=== PATIENT | male | born 1955 | race Caucasian/White ===

== ENCOUNTER → 2018-09-07 | Outpatient (CLI) | payer OTHER ==
[~2018-09-07] MED LIST: BISA10S; CEPH500 PO; FAMO20 PO; FURO20 PO; Humalog100 UNIT/3 INJ; INSUGL100V INJ; LAVAP17G; LEVFLO500 PO; MINE10T; ONDA4ODT MM; OXYC5 PO; PROM25 PO; SENN187 PO; SIME40L
== END | disposition home or self-care (01) ==
LOC: LAB 17:07 → LAB SHORT 17:07
DX: R21 Rash and other nonspecific skin eruption (principal); D48.5 Neoplasm of uncertain behavior of skin; L81.4 Other melanin hyperpigmentation; L82.1 Other seborrheic keratosis; D18.01 Hemangioma of skin and subcutaneous tissue
CPT/HCPCS: 87102

== ENCOUNTER → 2018-12-20 | Outpatient (CLI) | payer OTHER | END | disposition home or self-care (01) | LOC: LAB 17:14 → LAB SHORT 17:14 | DX: L08.9 Local infection of the skin and subcutaneous tissue, unspecified (principal) | CPT/HCPCS: 87070; 87077; 87147; 87186; 87205 ==

== ENCOUNTER 2019-01-04 09:42 | Emergency (ER) | payer OTHER ==
[~2019-01-04] VITALS: Ht 188 cm; Wt 90.7 kg
[2019-01-04 10:20] LABS: BASOPHILS ABSOLUTE AUTO 0.04 K/mm3 (0.00-0.23); BASOPHILS PERCENT AUTO 1 % (0-2); EOSINOPHILS ABSOLUTE AUTO 0.04 K/mm3 (0.00-0.68); EOSINOPHILS PERCENT AUTO 1 % (0-6); Hematocrit 43.1 % (37.0-53.0); Hemoglobin 14.3 g/dL (13.5-17.5); IMMATURE GRAN ABSOLUTE AUTO 0.02 K/mm3 (0.00-0.10); IMMATURE GRAN PERCENT AUTO 0 % (0-1); LYMPHOCYTES ABSOLUTE AUTO 0.69 K/mm3 (0.84-5.20); LYMPHOCYTES PERCENT AUTO 13 % (21-46); MONOCYTES ABSOLUTE AUTO 0.56 K/mm3 (0.16-1.47); MONOCYTES PERCENT AUTO 10 % (4-13); Mean Corpuscular HGB 28.7 pg (26.0-34.0); Mean Corpuscular HGB Conc 33.2 g/dL (31.5-36.5); Mean Corpuscular Volume 87 fL (80-100); Mean Platelet Volume 12.5 fL (9.1-12.4); NEUTROPHILS ABSOLUTE AUTO 4.16 K/mm3 (1.96-9.15); NEUTROPHILS PERCENT AUTO 76 % (41-73); Platelet Count 85 K/mm3 (150-400); RDW Coefficient Variation 13.5 % (11.7-14.2); Red Blood Cell Count 4.98 M/mm3 (4.30-5.90); White Blood Cell Count 5.51 K/mm3 (4.00-11.30)
[2019-01-04 10:31] LABS: Alanine Aminotransfer (ALT/SGP 39 U/L (12-78); Albumin, Blood 3.8 g/dL (3.4-5.0); Albumin/Globulin Ratio 1.2 (0.8-1.8); Alk Phos 107 U/L (50-136); Anion Gap 7 mmol/L (6-16); Aspartate Aminotrans (AST/SGOT 31 U/L (12-37); Bilirubin, Total 0.7 mg/dL (0.1-1.0); Blood Urea Nitrogen 14 mg/dL (8-24); Bun/Creatinine Ratio 11.9 (12.0-20.0); CO2, Blood 28 mmol/L (21-32); Calcium, Blood 8.5 mg/dL (8.5-10.1); Chloride, Blood 108 mmol/L (98-108); Creatinine, Blood 1.18 mg/dL (0.60-1.20); Globulin, Blood 3.1 g/dL (2.2-4.0); Glomerular Filtration Rate >60 (60-); Glucose, Blood 54 mg/dL (70-99); Potassium, Blood 3.3 mmol/L (3.5-5.5); Sodium, Blood 143 mmol/L (136-145); Total Protein, Blood 6.9 g/dL (6.4-8.2)
[2019-01-04 11:50] LABS: Source, Urine Clean Catch
[2019-01-04 11:56] LABS: Bilirubin, Urine Neg (Neg); Blood, Urine Neg (Neg); Glucose Qualitative, Urine 2+ (Neg); Ketones, Urine Neg (Neg); Leukocyte Esterase, Urine Neg (Neg); Nitrite, Urine Neg (Neg); Protein, Urine 1+ (Neg); Specific Gravity, Urine 1.025 (1.003-1.022); Urobilinogen, Urine NORM (Normal)
[2019-01-04 12:02] LABS: Appearance, Urine Clear (Clear); Color, Urine Yellow (P-Yellow)
== END 2019-01-04 13:00 | disposition home or self-care (01) ==
LOC: ER 09:42
PROVIDERS: Emergency Medicine
DX: R42 Dizziness and giddiness (principal); Z79.899 Other long term (current) drug therapy; Z79.4 Long term (current) use of insulin
CPT/HCPCS: 36415; 80053; 83690; 84484; 85025; 93005; 93010; 96360; 99284-25; J7030

== ENCOUNTER → 2019-01-24 | Outpatient (CLI) | payer OTHER | END | disposition home or self-care (01) | LOC: LAB 16:43 → LAB SHORT 16:43 | DX: L08.9 Local infection of the skin and subcutaneous tissue, unspecified (principal); L28.0 Lichen simplex chronicus; L97.519 Non-pressure chronic ulcer of other part of right foot with unspecified severity; R60.0 Localized edema | CPT/HCPCS: 87070; 87077; 87147; 87186; 87205 ==

== ENCOUNTER 2019-08-18 06:40 | Inpatient (IN) | payer OTHER ==
[~2019-08-18] VITALS: Ht 188 cm; Wt 97.4 kg
[2019-08-18 07:22] LABS: BASOPHILS ABSOLUTE AUTO 0.02 K/mm3 (0.00-0.23); BASOPHILS PERCENT AUTO 0 % (0-2); EOSINOPHILS PERCENT AUTO 0 % (0-6); Hematocrit 45.8 % (37.0-53.0); Hemoglobin 15.3 g/dL (13.5-17.5); IMMATURE GRAN ABSOLUTE AUTO 0.01 K/mm3 (0.00-0.10); IMMATURE GRAN PERCENT AUTO 0 % (0-1); LYMPHOCYTES ABSOLUTE AUTO 0.13 K/mm3 (0.84-5.20); LYMPHOCYTES PERCENT AUTO 2 % (21-46); MONOCYTES ABSOLUTE AUTO 0.39 K/mm3 (0.16-1.47); MONOCYTES PERCENT AUTO 6 % (4-13); Mean Corpuscular HGB 28.8 pg (26.0-34.0); Mean Corpuscular HGB Conc 33.4 g/dL (31.5-36.5); Mean Corpuscular Volume 86 fL (80-100); Mean Platelet Volume 11.9 fL (9.1-12.4); NEUTROPHILS ABSOLUTE AUTO 5.71 K/mm3 (1.96-9.15); NEUTROPHILS PERCENT AUTO 91 % (41-73); Platelet Count 86 K/mm3 (150-400); RDW Coefficient Variation 13.6 % (11.7-14.2); RDW Standard Deviation 42.4 fL (35.1-46.3); Red Blood Cell Count 5.32 M/mm3 (4.30-5.90); White Blood Cell Count 6.26 K/mm3 (4.00-11.30)
[2019-08-18 07:39] LABS: Albumin, Blood 3.6 g/dL (3.4-5.0); Albumin/Globulin Ratio 1.1 (0.8-1.8); Bilirubin, Total 1.1 mg/dL (0.1-1.0); Bun/Creatinine Ratio 16.5 (12.0-20.0); Calcium, Blood 8.4 mg/dL (8.5-10.1); Creatinine, Blood 1.39 mg/dL (0.60-1.20); Globulin, Blood 3.2 g/dL (2.2-4.0); Potassium, Blood 4.2 mmol/L (3.5-5.5); Total Protein, Blood 6.8 g/dL (6.4-8.2)
--- NOTE | 2019-08-18 16:01 | NUR ---
ASSUMED CARE OF PATIENT AT THIS TIME. PT IS SLEEPING. CALL LIGHT IN REACH. VSS. WILL CONT TO MONITOR.
--- NOTE | 2019-08-18 19:28 | NUR ---
PT HAS BEEN STABLE. NO FLATUS OR STOOL. NEEDS GI PANEL COLLECTED. CONT BOWEL REST AND IV FLUIDS. PT PAIN CONTROLLED WITH PRN FENT. VOIDING WITH URINAL. ENCOURAGING AMB TOLERATED. DNR BRACELET PLACED AFTER ORDER VERIFIED WITH 2ND RN. PT CAN USE CALL LIGHT APPROPRIATELY.
[2019-08-19 00:51] LABS: Campylobacter Sp Not Detected (NOT DETECT)
[2019-08-19 00:52] LABS: Adenovirus F 40/41 Not Detected (NOT DETECT); Astrovirus Not Detected (NOT DETECT); Cryptosporidium Not Detected (NOT DETECT); Cyclospora Cayetanensis Not Detected (NOT DETECT); E. Coli O157 Not Detected (NOT DETECT); Entamoeba Histolytica Not Detected (NOT DETECT); Enteroaggregative E. coli-EAEC Not Detected (NOT DETECT); Enteropathogenic E. coli-EPEC Not Detected (NOT DETECT); Enterotoxigenic E. coli-ETEC Not Detected (NOT DETECT); Giardia Lamblia Not Detected (NOT DETECT); Norovirus GI/GII Detected (NOT DETECT); Plesiomonas Shigelloides Not Detected (NOT DETECT); Rotavirus A Not Detected (NOT DETECT); Salmonella Sp Not Detected (NOT DETECT); Sapovirus Not Detected (NOT DETECT); Shiga Toxin-prod E. coli-STEC Not Detected (NOT DETECT); Shigella/Enteroin E. coli-EIEC Not Detected (NOT DETECT); Vibrio Cholerae Not Detected (NOT DETECT); Vibrio Sp Not Detected (NOT DETECT); Yersinia Enterocolitica Not Detected (NOT DETECT)
[2019-08-19 04:51] LABS: Hematocrit 46.7 % (37.0-53.0); Hemoglobin 15.1 g/dL (13.5-17.5); Mean Corpuscular HGB 28.4 pg (26.0-34.0); Mean Corpuscular HGB Conc 32.3 g/dL (31.5-36.5); Mean Corpuscular Volume 88 fL (80-100); Mean Platelet Volume 12.2 fL (9.1-12.4); Platelet Count 85 K/mm3 (150-400); RDW Coefficient Variation 13.6 % (11.7-14.2); Red Blood Cell Count 5.32 M/mm3 (4.30-5.90); White Blood Cell Count 4.41 K/mm3 (4.00-11.30)
[2019-08-19 05:18] LABS: Alanine Aminotransfer (ALT/SGP 24 U/L (12-78); Albumin, Blood 3.1 g/dL (3.4-5.0); Alk Phos 83 U/L (50-136); Anion Gap 8 mmol/L (6-16); Aspartate Aminotrans (AST/SGOT 23 U/L (12-37); Bilirubin, Total 0.6 mg/dL (0.1-1.0); Blood Urea Nitrogen 30 mg/dL (8-24); Bun/Creatinine Ratio 22.9 (12.0-20.0); CO2, Blood 22 mmol/L (21-32); Calcium, Blood 7.8 mg/dL (8.5-10.1); Chloride, Blood 111 mmol/L (98-108); Creatinine, Blood 1.31 mg/dL (0.60-1.20); Globulin, Blood 3.1 g/dL (2.2-4.0); Glomerular Filtration Rate 58 (60-); Glucose, Blood 82 mg/dL (70-99); Potassium, Blood 3.8 mmol/L (3.5-5.5); Sodium, Blood 141 mmol/L (136-145); Total Protein, Blood 6.2 g/dL (6.4-8.2)
--- NOTE | 2019-08-19 05:46 | NUR ---
SHIFT SUMMARY PT RESTING WELL THIS AM. AAOX4. NPO. DISCOMFORT CONTROLLED WITH 50mcg FENTANYL X1 THIS SHIFT. DENIES NAUSEA/EMESIS. HYPOGLYCEMIA NOTED AT MIDNIGHT, DR BANKS NOTIFIED + NEW ORDERS OBTAINED TO CHANGE IVF TO D5NS AT 75ml/hr + TO HOLD AM DOSE OF LANTUS AT THIS TIME. PT INDEPENDENT IN ROOM + UP TO RESTROOM FOR MULTIPLE LOOSE BMs THIS SHIFT. STOOL SAMPLE SENT. KIRAN MCELROY TO BRIAN. PT RESTING AT THIS TIME, LISHA, WITH CALL LIGHT IN REACH.
--- NOTE | 2019-08-19 17:38 | NUR ---
SHIFT SUMMARY PT HAS DONE WELL THIS SHIFT. HAS HAD NO PAIN, N/V. HAS DENIED ANY LIQUID STOOLS THIS SHIFT, POSITIVE FOR NOROVIRUS. PT INDEPENDENT IN ROOM.
[2019-08-20 05:56] LABS: BASOPHILS ABSOLUTE AUTO 0.02 K/mm3 (0.00-0.23); BASOPHILS PERCENT AUTO 1 % (0-2); EOSINOPHILS ABSOLUTE AUTO 0.13 K/mm3 (0.00-0.68); EOSINOPHILS PERCENT AUTO 4 % (0-6); Hematocrit 42.6 % (37.0-53.0); Hemoglobin 14.1 g/dL (13.5-17.5); IMMATURE GRAN ABSOLUTE AUTO 0.01 K/mm3 (0.00-0.10); IMMATURE GRAN PERCENT AUTO 0 % (0-1); LYMPHOCYTES ABSOLUTE AUTO 0.35 K/mm3 (0.84-5.20); LYMPHOCYTES PERCENT AUTO 12 % (21-46); MONOCYTES PERCENT AUTO 17 % (4-13); Mean Corpuscular HGB 28.8 pg (26.0-34.0); Mean Corpuscular HGB Conc 33.1 g/dL (31.5-36.5); Mean Corpuscular Volume 87 fL (80-100); Mean Platelet Volume 12.3 fL (9.1-12.4); NEUTROPHILS ABSOLUTE AUTO 1.98 K/mm3 (1.96-9.15); NEUTROPHILS PERCENT AUTO 66 % (41-73); Platelet Count 59 K/mm3 (150-400); RDW Coefficient Variation 13.6 % (11.7-14.2); RDW Standard Deviation 43.4 fL (35.1-46.3); White Blood Cell Count 2.99 K/mm3 (4.00-11.30)
[2019-08-20 06:11] LABS: Albumin, Blood 2.8 g/dL (3.4-5.0); Anion Gap 6 mmol/L (6-16); Blood Urea Nitrogen 24 mg/dL (8-24); Bun/Creatinine Ratio 22.6 (12.0-20.0); CO2, Blood 23 mmol/L (21-32); Calcium, Blood 7.8 mg/dL (8.5-10.1); Chloride, Blood 113 mmol/L (98-108); Creatinine, Blood 1.06 mg/dL (0.60-1.20); Glomerular Filtration Rate >60 (60-); Glucose, Blood 159 mg/dL (70-99); Phosphorus, Blood 2.1 mg/dL (2.5-4.9); Potassium, Blood 4.2 mmol/L (3.5-5.5); Sodium, Blood 142 mmol/L (136-145)
--- NOTE | 2019-08-20 07:23 | NUR ---
SHIFT SUMMARY PT RESTED WELL T/O NIGHT. AAOX4. DENIES DISCOMFORT/NAUSEA T/O NIGHT. BOWEL TONES HYPERACTIVE X4 QUADS, ABD SEVERELY FIRM/DISTENDED, PT REPORTING ABD AT BASELINE FROM PREVIOUS SURGERY IN 2013. PT UP IN ROOM INDEPENDENTLY WITH X2 LARGE SOFT BMs. IVF PER ORDERS. TOLERATING CLEAR LIQUID DIET WELL, PT REQUESTING TO BE ADVANCED TO ADA DIET. NO ACUTE CHANGES OVER NIGHT. PT SITTING UP IN BED AT THIS TIME WATCHING TV WITH CALL LIGHT IN REACH. REPORT TO DAY SHIFT RN.
[2019-08-20] MEDS ORDERED: K-Phos Origina500 MG PO (11:21)
--- NOTE | 2019-08-20 12:04 | NUR ---
DISCHARGE: PACKET PRINTED AND PT EDUCATED. MEDS FAXED TO [facility]. PT LEFT UNIT BY FOOT AT ABOUT 1140
== END 2019-08-20 11:40 | disposition home or self-care (01) | DRG 392 ==
LOC: ER 06:40 → SURS 10:33
PROVIDERS: Emergency Medicine; Internal Medicine; Nurse Practitioner Acute Care; ADMIT Family Medicine
DX: A08.11 Acute gastroenteropathy due to Norwalk agent (principal); N17.9 Acute kidney failure, unspecified; K76.6 Portal hypertension; E86.0 Dehydration; D69.6 Thrombocytopenia, unspecified; K31.89 Other diseases of stomach and duodenum; E11.9 Type 2 diabetes mellitus without complications; K21.9 Gastro-esophageal reflux disease without esophagitis; E83.39 Other disorders of phosphorus metabolism; Z79.4 Long term (current) use of insulin
CPT/HCPCS: 0097U; 36415; 74177; 80053; 80069; 82947; 83036; 83690; 83735; 84153; 85025; 85027; 90686; 96361; 96374-59; 96375; 96376; 99285-25; C9113; G0008; J2270; J2405; J3010; J7030; Q9967

== ENCOUNTER → 2020-11-11 | Outpatient (CLI) | payer OTHER | LOC: LAB SHORT 17:46 → LAB 17:46 | DX: L08.9 Local infection of the skin and subcutaneous tissue, unspecified (principal) | CPT/HCPCS: 87070; 87077; 87147; 87186; 87205 ==

== ENCOUNTER 2024-04-02 18:04 | Emergency (ER) | payer OTHER ==
[~2024-04-02] VITALS: Ht 188 cm; Wt 90.7 kg
[~2024-04-02 18:04] MED LIST changes: +AMLO10 PO; +Acetaminophen650 M1 PO; +INSULANPEN SC; +K-Phos Origina500 MG PO; +LEVO750 PO; +SEMGLEE (Y100 UNIT/2 SC; +TAMS.4ER PO; +VISBIOME 112.51 EACH PO
[2024-04-02] MEDS ORDERED: CefTRIAXone Sodium 2,000 MG in NS 100 ML IV ONE (19:55)
[2024-04-02 20:27] LABS: Source, Urine Foley catheter
[2024-04-02 20:31] LABS: BASOPHILS ABSOLUTE AUTO 0.03 K/mm3 (0.00-0.23); BASOPHILS PERCENT AUTO 0 % (0-2); EOSINOPHILS ABSOLUTE AUTO 0.11 K/mm3 (0.00-0.68); EOSINOPHILS PERCENT AUTO 1 % (0-6); Hematocrit 39.9 % (37.0-53.0); Hemoglobin 13.5 g/dL (13.5-17.5); IMMATURE GRAN ABSOLUTE AUTO 0.04 K/mm3 (0.00-0.10); IMMATURE GRAN PERCENT AUTO 1 % (0-1); LYMPHOCYTES ABSOLUTE AUTO 0.22 K/mm3 (0.84-5.20); LYMPHOCYTES PERCENT AUTO 3 % (21-46); MONOCYTES ABSOLUTE AUTO 0.64 K/mm3 (0.16-1.47); MONOCYTES PERCENT AUTO 8 % (4-13); Mean Corpuscular HGB Conc 33.8 g/dL (31.5-36.5); Mean Corpuscular Volume 86 fL (80-100); Mean Platelet Volume 11.5 fL (9.1-12.4); NEUTROPHILS PERCENT AUTO 88 % (41-73); Platelet Count 109 K/mm3 (150-400); RDW Coefficient Variation 13.3 % (11.7-14.2); RDW Standard Deviation 41.8 fL (35.1-46.3); Red Blood Cell Count 4.65 M/mm3 (4.30-5.90); White Blood Cell Count 8.44 K/mm3 (4.00-11.30)
[2024-04-02 20:32] LABS: Bilirubin, Urine Neg (Neg); Blood, Urine 5+ (Neg); Glucose Qualitative, Urine 2+ (Neg); Ketones, Urine 1+ (Neg); Leukocyte Esterase, Urine 3+ (Neg); Nitrite, Urine Pos (Neg); Protein, Urine 4+ (Neg); Urobilinogen, Urine NORM (Normal)
[2024-04-02 20:34] LABS: Appearance, Urine Turbid (Clear); Color, Urine Red (P-Yellow)
[2024-04-02 20:39] LABS: Bacteria Many /hpf; Red Blood Cells, Urine 50-100 /hpf (0-2); Squamous Epithelial Cells Rare /hpf (Few); White Blood Cells, Urine TNTC /hpf (0-5)
[2024-04-02 20:51] LABS: Magnesium, Blood 2.2 mg/dL (1.6-2.4)
[2024-04-02 20:52] LABS: Albumin, Blood 3.6 g/dL (3.4-5.0); Bilirubin, Total 0.8 mg/dL (0.1-1.0); Creatinine, Blood 1.59 mg/dL (0.60-1.20); Globulin, Blood 3.5 g/dL (2.2-4.0); Potassium, Blood 4.4 mmol/L (3.5-5.5); Total Protein, Blood 7.1 g/dL (6.4-8.2)
[2024-04-02] MEDS ORDERED: CEFD300 PO (21:14)
[2024-04-02 21:30] VITALS: BP 162/92
== END 2024-04-02 21:53 | disposition home or self-care (01) ==
LOC: ER 18:04
PROVIDERS: Physician Assistant
DX: N39.0 Urinary tract infection, site not specified (principal); N18.9 Chronic kidney disease, unspecified; E10.65 Type 1 diabetes mellitus with hyperglycemia; E10.22 Type 1 diabetes mellitus with diabetic chronic kidney disease; N40.1 Benign prostatic hyperplasia with lower urinary tract symptoms; R33.8 Other retention of urine; Z79.4 Long term (current) use of insulin; Z79.899 Other long term (current) drug therapy
CPT/HCPCS: 51702; 80053; 81001; 83735; 85025; 87077; 87086; 87147; 87186; 96374; 99284-25; J0696

== ENCOUNTER 2024-05-13 17:40 | Emergency (ER) | payer OTHER ==
[~2024-05-13] VITALS: Ht 188 cm; Wt 90.7 kg
[~2024-05-13 17:40] MED LIST changes: +CEFD300 PO
[2024-05-13 17:45] VITALS: BP 170/9
[2024-05-13 18:18] LABS: Source, Urine Foley catheter
[2024-05-13 18:20] LABS: Appearance, Urine Cloudy (Clear); Bilirubin, Urine Neg (Neg); Blood, Urine 5+ (Neg); Color, Urine Yellow (P-Yellow); Glucose Qualitative, Urine 4+ (Neg); Ketones, Urine Neg (Neg); Leukocyte Esterase, Urine 3+ (Neg); Nitrite, Urine Pos (Neg); Protein, Urine 3+ (Neg); Specific Gravity, Urine 1.025 (1.003-1.022); Urobilinogen, Urine NORM (Normal)
[2024-05-13 18:36] LABS: Bacteria Many /hpf; Red Blood Cells, Urine 25-50 /hpf (0-2); Squamous Epithelial Cells Not Seen /hpf (Few); White Blood Cells, Urine 50-100 /hpf (0-5)
== END 2024-05-13 19:00 | disposition home or self-care (01) ==
LOC: ER 17:40
PROVIDERS: Physician Assistant
DX: T83.091A Other mechanical complication of indwelling urethral catheter, initial encounter (principal); N40.1 Benign prostatic hyperplasia with lower urinary tract symptoms; R33.8 Other retention of urine; E10.9 Type 1 diabetes mellitus without complications; Z79.4 Long term (current) use of insulin; Z79.2 Long term (current) use of antibiotics; Z79.899 Other long term (current) drug therapy
CPT/HCPCS: 51702; 81001; 87086; 99283-25

== ENCOUNTER 2024-07-19 17:27 | Emergency (ER) | payer OTHER ==
[~2024-07-19] VITALS: Ht 188 cm; Wt 90.7 kg
[~2024-07-19 17:27] MED LIST changes: +CEFP200 PO
[2024-07-19 18:51] VITALS: BP 153/86
[2024-07-19 18:52] LABS: Source, Urine Foley catheter
[2024-07-19 19:02] LABS: Appearance, Urine Cloudy (Clear); Bilirubin, Urine Neg (Neg); Blood, Urine 5+ (Neg); Color, Urine Amber (P-Yellow); Glucose Qualitative, Urine Neg (Neg); Ketones, Urine Neg (Neg); Leukocyte Esterase, Urine 3+ (Neg); Nitrite, Urine Pos (Neg); Protein, Urine 4+ (Neg); Urobilinogen, Urine NORM (Normal); pH, Urine 6.5 (5.0-8.0)
[2024-07-19 19:09] LABS: White Blood Cells, Urine TNTC /hpf (0-5)
[2024-07-19 19:11] LABS: Bacteria Many /hpf; Red Blood Cells, Urine 50-100 /hpf (0-2); Squamous Epithelial Cells Not Seen /hpf (Few)
[2024-07-19] MEDS ORDERED: Trimethoprim/Sulfamethoxazole DS Tab PO ONE (19:20)
[2024-07-19] MEDS ORDERED: SULTRIDS PO (19:23)
== END 2024-07-19 19:50 | disposition home or self-care (01) ==
LOC: ER 17:27
PROVIDERS: Student in an Organized Health Care Education/Training Program
DX: T83.098A Other mechanical complication of other urinary catheter, initial encounter (principal); N39.0 Urinary tract infection, site not specified; E11.9 Type 2 diabetes mellitus without complications; Z79.4 Long term (current) use of insulin; Z79.899 Other long term (current) drug therapy
CPT/HCPCS: 51702; 51798; 81001; 87077; 87086; 87186; 99283-25; A9270

== ENCOUNTER 2024-07-28 02:54 | Emergency (ER) | payer OTHER ==
[~2024-07-28] VITALS: Ht 188 cm; Wt 90.7 kg
[~2024-07-28 02:54] MED LIST changes: +SULTRIDS PO
[2024-07-28 03:08] VITALS: BP 189/99
[2024-07-28] MEDS ORDERED: SULFAMETHOXAZO1 EAC1 PO (03:10)
[2024-07-28] MEDS ORDERED: CEFU250T47 PO (03:10)
[2024-07-28] MEDS ORDERED: SEMGLEE (Y100 UNIT/2 (03:11)
[2024-07-28] MEDS ORDERED: Lidocaine 2% Jelly Uro-Jet TOP ONE (03:45)
== END 2024-07-28 04:07 | disposition home or self-care (01) ==
LOC: ER 02:54
DX: T83.098A Other mechanical complication of other urinary catheter, initial encounter (principal); Y84.6 Urinary catheterization as the cause of abnormal reaction of the patient, or of later complication, without mention of misadventure at the time of the procedure
CPT/HCPCS: 51798; 99283

== ENCOUNTER 2024-07-29 14:06 | Emergency (ER) | payer OTHER ==
[~2024-07-29] VITALS: Ht 188 cm; Wt 90.7 kg
[~2024-07-29 14:06] MED LIST changes: +CEFU250T47 PO; +SEMGLEE (Y100 UNIT/2; +SULFAMETHOXAZO1 EAC1 PO
[2024-07-29 14:27] VITALS: BP 175/89
== END 2024-07-29 15:07 | disposition home or self-care (01) ==
LOC: ER 14:06
DX: T83.091A Other mechanical complication of indwelling urethral catheter, initial encounter (principal); R33.9 Retention of urine, unspecified; E10.9 Type 1 diabetes mellitus without complications; Z79.4 Long term (current) use of insulin
CPT/HCPCS: 51702; 99283

== ENCOUNTER 2024-08-24 12:31 | Emergency (ER) | payer OTHER ==
[~2024-08-24] VITALS: Ht 188 cm; Wt 81.7 kg
[2024-08-24 12:52] VITALS: BP 191/110
[2024-08-24 13:26] LABS: Source, Urine Foley catheter
[2024-08-24 13:31] LABS: Appearance, Urine Cloudy (Clear); Bilirubin, Urine Neg (Neg); Blood, Urine 5+ (Neg); Color, Urine Yellow (P-Yellow); Glucose Qualitative, Urine 4+ (Neg); Ketones, Urine Neg (Neg); Leukocyte Esterase, Urine 3+ (Neg); Nitrite, Urine Pos (Neg); Protein, Urine 3+ (Neg); Specific Gravity, Urine 1.015 (1.003-1.022); Urobilinogen, Urine NORM (Normal); pH, Urine 6.5 (5.0-8.0)
[2024-08-24 13:43] LABS: Bacteria Mod /hpf; Red Blood Cells, Urine 25-50 /hpf (0-2); Squamous Epithelial Cells Not Seen /hpf (Few); White Blood Cells, Urine 50-100 /hpf (0-5)
[2024-08-24] MEDS ORDERED: CEPH500 PO (15:05)
[2024-08-24] MEDS ORDERED: SULTRIDS PO (15:05)
== END 2024-08-24 15:05 | disposition home or self-care (01) ==
LOC: ER 12:31
PROVIDERS: Student in an Organized Health Care Education/Training Program
DX: T83.091A Other mechanical complication of indwelling urethral catheter, initial encounter (principal); N39.0 Urinary tract infection, site not specified; Z79.899 Other long term (current) drug therapy
CPT/HCPCS: 51702; 81001; 87077; 87086; 87186; 99283-25

== ENCOUNTER 2024-12-30 12:13 | Emergency (ER) | payer OTHER ==
[~2024-12-30] VITALS: Ht 188 cm; Wt 95.2 kg
[2024-12-30 12:30] VITALS: BP 145/95
[2024-12-30 14:22] LABS: Source, Urine Foley catheter
[2024-12-30 14:27] LABS: Appearance, Urine Cloudy (Clear); Bilirubin, Urine Neg (Neg); Blood, Urine 5+ (Neg); Color, Urine Yellow (P-Yellow); Glucose Qualitative, Urine 4+ (Neg); Ketones, Urine Neg (Neg); Leukocyte Esterase, Urine 3+ (Neg); Nitrite, Urine Pos (Neg); Protein, Urine 3+ (Neg); Specific Gravity, Urine 1.015 (1.003-1.022); Urobilinogen, Urine NORM (Normal)
[2024-12-30 14:34] LABS: White Blood Cells, Urine TNTC /hpf (0-5)
[2024-12-30 14:35] LABS: Bacteria Many /hpf; Squamous Epithelial Cells Few /hpf (Few); Triple Phosphate Crystals Rare /hpf
[2024-12-30] MEDS ORDERED: Ciprofloxacin 500 MG Tab PO ONE (15:25)
[2024-12-30] MEDS ORDERED: CIPR250 PO (15:27)
== END 2024-12-30 18:07 | disposition home or self-care (01) ==
LOC: ER 12:13
PROVIDERS: Emergency Medicine
DX: T83.091A Other mechanical complication of indwelling urethral catheter, initial encounter (principal); N39.0 Urinary tract infection, site not specified; Z88.2 Allergy status to sulfonamides; Z88.1 Allergy status to other antibiotic agents; E11.9 Type 2 diabetes mellitus without complications
CPT/HCPCS: 51702; 51798; 81001; 87077; 87086; 87186; 99283-25; A9270

== ENCOUNTER 2025-02-10 11:47 | Emergency (ER) | payer OTHER ==
[~2025-02-10] VITALS: Ht 188 cm; Wt 90.7 kg
[~2025-02-10 11:47] MED LIST changes: +CIPR250 PO
[2025-02-10 11:51] VITALS: BP 174/70
[2025-02-10] MEDS ORDERED: Lidocaine 2% Jelly Uro-Jet UR ONE (11:55)
== END 2025-02-10 13:33 | disposition home or self-care (01) ==
LOC: ER 11:47
DX: T83.091A Other mechanical complication of indwelling urethral catheter, initial encounter (principal); E11.9 Type 2 diabetes mellitus without complications; Z79.4 Long term (current) use of insulin; Z79.899 Other long term (current) drug therapy; Z79.2 Long term (current) use of antibiotics
CPT/HCPCS: 99282

== ENCOUNTER 2025-03-14 12:01 | Emergency (ER) | payer OTHER ==
[~2025-03-14] VITALS: Ht 188 cm; Wt 90.7 kg
[2025-03-14 12:29] VITALS: BP 199/97
[2025-03-14 13:25] LABS: Source, Urine Clean Catch
[2025-03-14 13:29] LABS: Bilirubin, Urine Neg (Neg); Color, Urine Brown (P-Yellow); Glucose Qualitative, Urine 3+ (Neg); Ketones, Urine Neg (Neg); Leukocyte Esterase, Urine 3+ (Neg); Protein, Urine 4+ (Neg); Specific Gravity, Urine 1.015 (1.003-1.022); Urobilinogen, Urine NORM (Normal)
[2025-03-14 13:46] LABS: Red Blood Cells, Urine TNTC /hpf (0-2); White Blood Cells, Urine TNTC /hpf (0-5)
[2025-03-14] MEDS ORDERED: Bactrim Ds Tab1 EACH PO (13:57)
== END 2025-03-14 14:45 | disposition home or self-care (01) ==
LOC: ER 12:01
PROVIDERS: Physician Assistant
DX: T83.098A Other mechanical complication of other urinary catheter, initial encounter (principal); N39.0 Urinary tract infection, site not specified; E10.9 Type 1 diabetes mellitus without complications; Z79.4 Long term (current) use of insulin
CPT/HCPCS: 51702; 81001; 87077; 87086; 87147; 87186; 99283-25

== ENCOUNTER 2025-05-13 08:50 | Day surgery (SDC) | payer OTHER ==
[~2025-05-13] VITALS: Ht 185.4 cm; Wt 95.3 kg
[~2025-05-13 08:50] MED LIST changes: +Bactrim Ds Tab1 EACH PO; +NITR.4SL SL
[2025-05-13] MEDS ORDERED: Verapamil HCL 2.5 MG/ML 2ML Injection ONE ×3 (09:26→12:33)
[2025-05-13] MEDS ORDERED: NS 1,000 ML IV ONE ×2 (09:27→09:38)
[2025-05-13] MEDS ORDERED: NS 500 ML IV ONE ×2 (09:27→10:53)
[2025-05-13] MEDS ORDERED: Heparin Sodium 1000 Units/ML 10ML MDV ONE ×3 (09:27→10:53)
[2025-05-13] MEDS ORDERED: NS 250 ML IV ONE (09:27)
[2025-05-13] MEDS ORDERED: Nitroglycerin 2 MG/20 ML BTL ONE (09:27)
[2025-05-13 09:47] LABS: BASOPHILS ABSOLUTE AUTO 0.04 K/mm3 (0.00-0.23); BASOPHILS PERCENT AUTO 1 % (0-2); EOSINOPHILS ABSOLUTE AUTO 0.23 K/mm3 (0.00-0.68); EOSINOPHILS PERCENT AUTO 4 % (0-6); Hematocrit 41.3 % (37.0-53.0); Hemoglobin 14.4 g/dL (13.5-17.5); IMMATURE GRAN ABSOLUTE AUTO 0.01 K/mm3 (0.00-0.10); IMMATURE GRAN PERCENT AUTO 0 % (0-1); LYMPHOCYTES ABSOLUTE AUTO 0.40 K/mm3 (0.84-5.20); LYMPHOCYTES PERCENT AUTO 7 % (21-46); MONOCYTES ABSOLUTE AUTO 0.55 K/mm3 (0.16-1.47); MONOCYTES PERCENT AUTO 9 % (4-13); Mean Corpuscular HGB Conc 34.9 g/dL (31.5-36.5); Mean Corpuscular Volume 85 fL (80-100); NEUTROPHILS ABSOLUTE AUTO 4.77 K/mm3 (1.96-9.15); NEUTROPHILS PERCENT AUTO 79 % (41-73); NRBC ABSOLUTE 0.00 K/mm3 (0.00-0.02); NRBC Auto 0.0 /100 WBC (0.0-0.2); Platelet Count 102 K/mm3 (150-400); RDW Coefficient Variation 13.5 % (11.7-14.2); RDW Standard Deviation 41.8 fL (35.1-46.3)
[2025-05-13] MEDS ORDERED: NS 100 ML IV ONE ×2 (09:56→11:18)
[2025-05-13 10:00] LABS: Anion Gap 8.0 mmol/L (3-11); Blood Urea Nitrogen 16.0 mg/dL (8-24); CO2, Blood 26.0 mmol/L (21-32); Calcium, Blood 9.3 mg/dL (8.5-10.1); Chloride, Blood 107.0 mmol/L (98-108); Creatinine, Blood 1.19 mg/dL (0.60-1.20); Glucose, Blood 75.0 mg/dL (70-99); Potassium, Blood 3.9 mmol/L (3.5-5.5); Sodium, Blood 137.0 mmol/L (136-145)
[2025-05-13] MEDS ORDERED: D5W-1/2NS 1,000 ML IV ONE (10:06)
[2025-05-13] MEDS ORDERED: FentaNYL Citrate 50 MCG/ML 2 ML Injection ONE (10:15)
[2025-05-13] MEDS ORDERED: Midazolam HCl 1MG / ML 2ML Vial ONE ×2 (10:15→11:36)
[2025-05-13] MEDS ORDERED: HydrALAZINE HCl 20 MG / ML 1ML Vial ONE (13:28)
[2025-05-13] MEDS ORDERED: Labetalol HCL 5 MG/ML 4ML Injection (Single Dose) ONE (13:34)
[2025-05-13 13:57] VITALS: BP 168/90
--- NOTE | 2025-05-13 13:57 | NUR ---
PT ARRIVES TO RECOVERY ROOM WITH R RADIAL TR BAND IN PLACE, SITE C/D/I, NO BLEEDING OR HEMATOMA NOTED. PT HAS L FEMORAL SITE/ ANGIOSEAL CLOSURE IN PLACE. SOFT, NON TENDER, NO BLEEDING OR HEMATOMA NOTED. VSS.PT BLOOD SUGAR CHECKED. CHEM BG @ 43. NEW ORDERS IN PLCE PER DR RAY.
[2025-05-13 14:00] VITALS: BP 183/86
[2025-05-13] MEDS ORDERED: Dextrose 50% 50 ML Vial ONE (14:02)
[2025-05-13 14:06] VITALS: BP 175/98
[2025-05-13 14:15] VITALS: BP 174/95
--- NOTE | 2025-05-13 14:24 | NUR ---
PT GIVEM ORANGE JUICE AND DEXTROSE, CHEMBG IS NOW 91. Pt Sss, "I'm feeling better now." GOPI. LISHA
[2025-05-13 14:30] VITALS: BP 160/98
--- NOTE | 2025-05-13 14:55 | NUR ---
PT AMBULATES TO RESTROOM AND BACK WITHOUT DIFF. PT LEFT FEMORAL AND RADIAL SITE REMAINS STABLE. NO BLEEDING NOTED.
--- NOTE | 2025-05-13 15:12 | NUR ---
PT TR BAND FULLY DEFLATED. NO BLEEDING OR HEMATOMA NOTED. VSS. NADN.
[2025-05-13 15:20] VITALS: BP 160/92
--- NOTE | 2025-05-13 15:37 | NUR ---
PT ASSISTED WITH DRESSING SELF WITHOUT DIFF. PT VERBALIZES UNDERSTANDING WRITTEN AND VERBAL INSTRUCTIONS. DENIES QUESTIONS OR CONCERNS. PT IV DC'D. CATH INTACT./ PRESSURE DSG APPLIED. PT L FEMORAL SITE REMAINS STABLE, C/D/I. PT TR BAND REMOVED FROM R RADIAL. CLOTH DOT IN PLACE WITH SPLINT AND SLING. PT DC TO HOME VIA WC BY FRIEND
[2025-05-14] MEDS ORDERED: BASAGLAR K100 UNIT/3 SC (07:45)
[2025-05-14] MEDS ORDERED: METPRE4DP PO (09:49)
[2025-05-14] MEDS ORDERED: NAPR500 PO (09:49)
[2025-05-14] MEDS ORDERED: OXYC5 PO (09:49)
[2025-05-14] MEDS ORDERED: Bactrim Ds Tab1 EACH PO (23:45)
== END 2025-05-13 15:40 | disposition home or self-care (01) ==
LOC: MHTC 08:50
PROVIDERS: Student in an Organized Health Care Education/Training Program
DX: N40.1 Benign prostatic hyperplasia with lower urinary tract symptoms (principal); N13.8 Other obstructive and reflux uropathy; E11.9 Type 2 diabetes mellitus without complications
CPT/HCPCS: 37242; 75716; 75774; 76937; 80048; 82947; 85025; 99152; 99153; C1769; C1887; C1889; C1894; J0360; J1644; J2250; J3010; J7030; J7040; J7042; J7050; J7799; Q9967

== ENCOUNTER 2025-05-14 07:11 | Emergency (ER) | payer OTHER ==
[~2025-05-14] VITALS: Ht 185.4 cm; Wt 108.9 kg
[2025-05-14] MEDS ORDERED: Morphine Sulfate 4 MG/1 ML Injection IV ONE ×2 (07:40→09:15)
[2025-05-14] MEDS ORDERED: BASAGLAR K100 UNIT/3 SC (07:45)
[2025-05-14 07:56] LABS: BASOPHILS ABSOLUTE AUTO 0.03 K/mm3 (0.00-0.23); BASOPHILS PERCENT AUTO 0 % (0-2); EOSINOPHILS ABSOLUTE AUTO 0.04 K/mm3 (0.00-0.68); EOSINOPHILS PERCENT AUTO 1 % (0-6); Hematocrit 40.7 % (37.0-53.0); Hemoglobin 14.0 g/dL (13.5-17.5); IMMATURE GRAN ABSOLUTE AUTO 0.02 K/mm3 (0.00-0.10); IMMATURE GRAN PERCENT AUTO 0 % (0-1); LYMPHOCYTES ABSOLUTE AUTO 0.30 K/mm3 (0.84-5.20); LYMPHOCYTES PERCENT AUTO 4 % (21-46); MONOCYTES ABSOLUTE AUTO 0.54 K/mm3 (0.16-1.47); MONOCYTES PERCENT AUTO 7 % (4-13); Mean Corpuscular HGB Conc 34.4 g/dL (31.5-36.5); Mean Corpuscular Volume 82 fL (80-100); NEUTROPHILS ABSOLUTE AUTO 7.08 K/mm3 (1.96-9.15); NEUTROPHILS PERCENT AUTO 89 % (41-73); NRBC ABSOLUTE 0.00 K/mm3 (0.00-0.02); NRBC Auto 0.0 /100 WBC (0.0-0.2); Platelet Count 109 K/mm3 (150-400); RDW Coefficient Variation 13.3 % (11.7-14.2); RDW Standard Deviation 39.8 fL (35.1-46.3)
[2025-05-14 08:27] LABS: Alanine Aminotransfer (ALT/SGP 26.0 U/L (12-78); Albumin, Blood 3.8 g/dL (3.4-5.0); Albumin/Globulin Ratio 1.0 (0.8-1.8); Anion Gap 10.0 mmol/L (3-11); Aspartate Aminotrans (AST/SGOT 19.0 U/L (12-37); Bilirubin, Total 1.0 mg/dL (0.1-1.0); Blood Urea Nitrogen 13.0 mg/dL (8-24); CO2, Blood 25.0 mmol/L (21-32); Calcium, Blood 9.4 mg/dL (8.5-10.1); Chloride, Blood 99.0 mmol/L (98-108); Creatinine, Blood 1.07 mg/dL (0.60-1.20); Globulin, Blood 3.7 g/dL (2.2-4.0); Glucose, Blood 415.0 mg/dL (70-99); Potassium, Blood 4.6 mmol/L (3.5-5.5); Sodium, Blood 129.0 mmol/L (136-145); Total Protein, Blood 7.5 g/dL (6.4-8.2)
[2025-05-14 09:30] VITALS: BP 160/98
[2025-05-14] MEDS ORDERED: METPRE4DP PO (09:49)
[2025-05-14] MEDS ORDERED: OXYC5 PO (09:49)
[2025-05-14] MEDS ORDERED: NAPR500 PO (09:49)
[2025-05-14] MEDS ORDERED: Bactrim Ds Tab1 EACH PO (23:45)
== END 2025-05-14 10:04 | disposition home or self-care (01) ==
LOC: ER 07:11
PROVIDERS: Emergency Medicine
DX: N41.9 Inflammatory disease of prostate, unspecified (principal); Z98.890 Other specified postprocedural states; Z79.4 Long term (current) use of insulin; E11.9 Type 2 diabetes mellitus without complications; T83.091A Other mechanical complication of indwelling urethral catheter, initial encounter; T83.511A Infection and inflammatory reaction due to indwelling urethral catheter, initial encounter; N39.0 Urinary tract infection, site not specified
CPT/HCPCS: 51702; 74177; 80053; 81001; 85025; 87077; 87086; 87186; 96374-59; 96376; 99283-25; A9270; J2270; Q9967

== ENCOUNTER 2025-05-27 12:28 | Emergency (ER) | payer OTHER ==
[~2025-05-27] VITALS: Ht 185.4 cm; Wt 93.0 kg
[~2025-05-27 12:28] MED LIST changes: +BASAGLAR K100 UNIT/3 SC; +METPRE4DP PO; +NAPR500 PO
[2025-05-27] MEDS ORDERED: FentaNYL Citrate 50 MCG/ML 2 ML Injection IV ONE (13:00)
[2025-05-27 13:10] LABS: BASOPHILS ABSOLUTE AUTO 0.06 K/mm3 (0.00-0.23); BASOPHILS PERCENT AUTO 1 % (0-2); EOSINOPHILS ABSOLUTE AUTO 0.26 K/mm3 (0.00-0.68); EOSINOPHILS PERCENT AUTO 3 % (0-6); Hematocrit 41.5 % (37.0-53.0); Hemoglobin 14.1 g/dL (13.5-17.5); IMMATURE GRAN ABSOLUTE AUTO 0.04 K/mm3 (0.00-0.10); IMMATURE GRAN PERCENT AUTO 0 % (0-1); LYMPHOCYTES ABSOLUTE AUTO 0.50 K/mm3 (0.84-5.20); LYMPHOCYTES PERCENT AUTO 6 % (21-46); MONOCYTES ABSOLUTE AUTO 0.64 K/mm3 (0.16-1.47); MONOCYTES PERCENT AUTO 7 % (4-13); Mean Corpuscular HGB Conc 34.0 g/dL (31.5-36.5); Mean Corpuscular Volume 84 fL (80-100); NEUTROPHILS ABSOLUTE AUTO 7.51 K/mm3 (1.96-9.15); NEUTROPHILS PERCENT AUTO 83 % (41-73); NRBC ABSOLUTE 0.00 K/mm3 (0.00-0.02); NRBC Auto 0.0 /100 WBC (0.0-0.2); Platelet Count 115 K/mm3 (150-400); RDW Coefficient Variation 13.6 % (11.7-14.2); RDW Standard Deviation 41.7 fL (35.1-46.3)
[2025-05-27 13:16] VITALS: BP 154/92
[2025-05-27 13:18] LABS: Source, Urine Foley catheter
[2025-05-27 13:20] LABS: Bilirubin, Urine Neg (Neg); Color, Urine Yellow (P-Yellow); Glucose Qualitative, Urine 4+ (Neg); Ketones, Urine Neg (Neg); Leukocyte Esterase, Urine 3+ (Neg); Protein, Urine 3+ (Neg); Specific Gravity, Urine 1.010 (1.003-1.022); Urobilinogen, Urine NORM (Normal)
[2025-05-27 13:33] LABS: Red Blood Cells, Urine 25-50 /hpf (0-2); White Blood Cells, Urine 50-100 /hpf (0-5)
[2025-05-27 13:39] LABS: Alanine Aminotransfer (ALT/SGP 30.0 U/L (12-78); Albumin, Blood 3.6 g/dL (3.4-5.0); Albumin/Globulin Ratio 0.9 (0.8-1.8); Anion Gap 10.0 mmol/L (3-11); Aspartate Aminotrans (AST/SGOT 23.0 U/L (12-37); Bilirubin, Total 0.6 mg/dL (0.1-1.0); Blood Urea Nitrogen 15.0 mg/dL (8-24); CO2, Blood 24.0 mmol/L (21-32); Calcium, Blood 9.1 mg/dL (8.5-10.1); Chloride, Blood 102.0 mmol/L (98-108); Creatinine, Blood 1.28 mg/dL (0.60-1.20); Globulin, Blood 3.8 g/dL (2.2-4.0); Glucose, Blood 495.0 mg/dL (70-99); Potassium, Blood 4.5 mmol/L (3.5-5.5); Sodium, Blood 131.0 mmol/L (136-145); Total Protein, Blood 7.4 g/dL (6.4-8.2)
== END 2025-05-27 15:04 | disposition home or self-care (01) ==
LOC: ER 12:28
PROVIDERS: Physician Assistant
DX: T83.84XA Pain due to genitourinary prosthetic devices, implants and grafts, initial encounter (principal); N39.0 Urinary tract infection, site not specified; E10.9 Type 1 diabetes mellitus without complications; N40.0 Benign prostatic hyperplasia without lower urinary tract symptoms; Z96.0 Presence of urogenital implants; Z79.4 Long term (current) use of insulin; Z79.52 Long term (current) use of systemic steroids; Z79.2 Long term (current) use of antibiotics
CPT/HCPCS: 51702; 51798; 80053; 81001; 85025; 87077; 87086; 87147; 87186; 99283-25; J3010

== ENCOUNTER 2025-06-03 10:58 | Emergency (ER) | payer OTHER ==
[~2025-06-03] VITALS: Ht 185.4 cm; Wt 95.2 kg
[2025-06-03 11:20] VITALS: BP 186/96
[2025-06-03 11:49] LABS: Source, Urine Foley catheter
[2025-06-03 11:55] LABS: Bilirubin, Urine Neg (Neg); Color, Urine Yellow (P-Yellow); Glucose Qualitative, Urine 4+ (Neg); Ketones, Urine Neg (Neg); Leukocyte Esterase, Urine 3+ (Neg); Protein, Urine 3+ (Neg); Specific Gravity, Urine 1.015 (1.003-1.022); Urobilinogen, Urine NORM (Normal)
[2025-06-03 12:30] LABS: White Blood Cells, Urine TNTC /hpf (0-5)
[2025-06-03] MEDS ORDERED: FOSFOMYCIN TROME3 G1 PO (14:45)
== END 2025-06-03 14:49 | disposition home or self-care (01) ==
LOC: ER 10:58
PROVIDERS: Emergency Medicine
DX: T83.098A Other mechanical complication of other urinary catheter, initial encounter (principal); Y84.6 Urinary catheterization as the cause of abnormal reaction of the patient, or of later complication, without mention of misadventure at the time of the procedure; E11.9 Type 2 diabetes mellitus without complications; Z79.01 Long term (current) use of anticoagulants; Z79.899 Other long term (current) drug therapy
CPT/HCPCS: 51702; 81001; 87077; 87086; 87186; 99283-25